=== PATIENT | male | born 1995 | race Caucasian/White ===

== ENCOUNTER 2020-01-29 14:30 | Emergency (ER) | payer SELFPAY ==
[~2020-01-29] VITALS: Ht 177.8 cm; Wt 93.0 kg
[2020-01-29 14:51] VITALS: BP 116/75
--- NOTE | 2020-01-29 15:04 | NUR ---
24 Y/O M C/C LOWER MIDLINE ABDOMINAL PAIN X 5 DAYS. PER PT 04/10, SHARP SENSATION, RADIATING TO RIGHT GROIN AREA, RESTING ALLEVIATES, ACTIVITY EXACERBATES. PT DENIES DYSURIA/INJURIES/SX; PER PT IRREGULAR BM, LAST BM YESTERDAY WITH STRAINING. PT NKA. HX HYPOTHYROIDISM. NO RX. NO NVD. SIDE RAIL X1.
--- NOTE | 2020-01-29 15:05 | NUR ---
ERPA AT BEDSIDE
[2020-01-29] MEDS ORDERED: ACETAMINOPHEN EXTRA STRENGTH 500 MG TAB PO ONE (15:10)
[2020-01-29 16:05] LABS: BASOPHILS # (AUTO) 0.1 K/uL (0.00-0.22); BASOPHILS % (AUTO) 2.2 % (0.0-2.0); EOSINOPHILS # (AUTO) 0.2 K/uL (0-0.4); HEMATOCRIT 45.6 % (36-52); LYMPHOCYTES # (AUTO) 2.2 K/uL (2.0-11.5); LYMPHOCYTES % (AUTO) 37.5 % (20.5-51.1); MEAN CORPUSCULAR HEMOGLOBIN 29 pg (27-31); MEAN CORPUSCULAR HGB CONC 33 g/dL (33-37); MEAN CORPUSCULAR VOLUME 88.7 fL (80-94); MONOCYTES # (AUTO) 0.7 K/uL (0.8-1.0); MONOCYTES % (AUTO) 12.6 % (1.7-9.3); NEUTROPHILS # (AUTO) 2.7 K/uL (1.8-7.7); NEUTROPHILS % (AUTO) 44.7 % (42.2-75.2); PLATELET COUNT (AUTO) 202 K/uL (140-450); RED BLOOD CELL COUNT(AUTO) 5.14 MIL/uL (4.20-6.10); RED CELL DISTRIBUTION WIDTH 14.6 % (11.6-13.7)
--- NOTE | 2020-01-29 16:12 | NUR ---
PT RESTING IN BED, SIDE RAIL X1
[2020-01-29 16:17] LABS: ALBUMIN 3.9 g/dL (3.4-5.0); ANION GAP 9.4 (8-16); CARBON DIOXIDE 31.7 mmol/L (21-32); POTASSIUM 4.1 mmol/L (3.5-5.1); TOTAL BILIRUBIN 0.4 mg/dL (0.0-1.0)
[2020-01-29 16:27] VITALS: BP 116/75
--- NOTE | 2020-01-29 16:29 | NUR ---
Patient discharged with v/s stable. Written and verbal after care instructions given and explained regarding constipation. Patient alert, oriented and verbalized understanding of instructions. Ambulatory with steady gait. All questions addressed prior to discharge. ID band removed. Patient advised to follow up with PMD. Rx of mineral oil and miralax given. Patient educated on indication of medication including possible reaction and side effects. Opportunity to ask questions provided and answered.
== END 2020-01-29 16:29 | disposition home or self-care (01) ==
LOC: MED 14:30
DX: K59.00 Constipation, unspecified (principal); E03.9 Hypothyroidism, unspecified
CPT/HCPCS: 36415; 74018; 80053; 81002; 85025; 99284